=== PATIENT | female | born 1990 | race Caucasian/White ===

== ENCOUNTER 2019-07-21 15:32 | Outpatient (CLI) | payer OTHER ==
[2019-07-21 16:09] LABS: Appearance,Urine Cloudy (Clear); Bacteria,Urine Rare /hpf; Bilirubin,Urine Negative (Negative); Blood,Urine Negative (Negative); Color,Urine Yellow; Glucose,Urine (UA) Negative (Negative); Ketones,Urine Negative (Negative); Leukocyte Esterase,Urine Small (Negative); Mucus,Urine Few /hpf; Nitrite,Urine Negative (Negative); Protein,Urine 1+ (Negative); RBC,Urine 1 /hpf (0-5); Specific Gravity,Urine 1.026 (1.001-1.035); Squamous Epithelial Cell,Urine 10 /hpf (0-4); Urobilinogen,Urine <2.0 mg/dL (<2.0); WBC,Urine 8 /hpf (0-5)
[2019-07-21 16:35] LABS: Basophils % (A) 0 %; Eosinophils # (A) 0.1 k/uL (0-0.7); Eosinophils % (A) 0 %; HCT 34.5 % (34.0-46.0); HGB 11.9 gm/dL (11.4-16.0); Lymphocytes # (A) 1.5 k/uL (1.0-4.8); Lymphocytes % (A) 15 %; MCH 30.3 pg (25.0-35.0); MCHC 34.4 g/dL (31.0-37.0); MCV 88.1 fL (80.0-100.0); Mean Platelet Volume 7.8; Monocytes # (A) 0.4 k/uL (0-1.0); Monocytes % (A) 4 %; Neutrophils # (A) 8.2 k/uL (1.3-7.7); Neutrophils % (A) 79 %; Platelet Count 320 k/uL (150-450); RBC 3.92 m/uL (3.80-5.40); RDW 12.8 % (11.5-15.5); WBC 10.4 k/uL (3.8-10.6)
[2019-07-21 16:39] LABS: INR 0.9 (<1.2); Partial Thromboplastin Time 24.5 sec (22.0-30.0); Prothrombin Time 9.8 sec (9.0-12.0)
[2019-07-21 17:10] LABS: ALT 15 U/L (4-34); AST 26 U/L (14-36); African American GFR (CKD) >90 (>60 ml/min/1.73 sqM); Blood Urea Nitrogen 13 mg/dL (7-17); LDH 543 U/L (313-618); Non-African American GFR(CKD) >90 (>60 ml/min/1.73 sqM); Uric Acid 3.1 mg/dL (3.7-7.4)
[2019-07-21 17:26] VITALS: BP 144/78; PULSE 88; RESP 16; TEMP 97.2
--- NOTE | 2019-07-26 13:32 | P.MSEPDOC ---
Presenting Problems - Arrival Data Date of Arrival on Unit: 07/21/19 Time of Arrival on Unit: 15:32 Mode of Transport: Ambulatory - Complaint OB-Reason for Admission/Chief Complaint: Elevated Blood Pressure Medical History - Information : 1 Para: 0 Term: 0 : 0 Abortions: Spontaneous or Elective: 0 Number of Living Children: 0 - Gestational Age Gestational Age by JULIO CÉSAR (wks/days): 37 Weeks and 0 Days Review of Systems - Review of Systems Constitutional: No problems Breast: No problems ENT: No problems Cardiovascular: No problems Respiratory: No problems Gastrointestinal: No problems Genitourinary: No problems Musculoskeletal: No problems Neurological: No problems Skin: No problems Vital Signs - Temperature Temperature: 97.2 F Temperature Source: Temporal Artery Scan - Pulse Right Brachial Pulse Rate: 88 Pulse Assessment Method: Automatic Cuff - Respirations Respiratory Rate: 16 Oxygen Delivery Method: Room Air O2 Sat by Pulse Oximetry: 95 - Blood Pressure Right Arm Blood Pressure: 144/78 Blood Pressure Mean: 100 Blood Pressure Source: Automatic Cuff Medical Screen Scoring (Pre) - Cervical Exam Dilation: Exam Deferred Effacement: Exam Deferred Membranes: Intact - Uterine Contractions Frequency: N/A Duration: N/A Intensity: N/A - Maternal Vital Signs Maternal Temperature: N/A Maternal Blood Pressure: N/A Signs of Preeclampsia: N/A Maternal Respirations: N/A - Maternal Trauma Maternal Trauma: N/A - Assessment - Baby A Baseline FHR: 125 Heart Rate - NICHD Category: Category I (Normal) = 0 NST: Reactive Position: N/A Station: N/A - Total Score - Baby A Total Score - Baby A: 0 - Total Score - Baby B Total Score - Baby B: 0 - Total Score - Baby C Total Score - Baby C: 0 - Level of Risk - Baby A Level of Risk - Baby A: Low (0-5) - Level of Risk - Baby B Level of Risk - Baby B: Low (0-5) - Level of Risk - Baby C Level of Risk - Baby C: Low (0-5) Physician Notification (Pre) - Physician Notified Physician Notified Date: 07/21/19 Physician Notified Time: 17:10 New Order Received: Yes - Notification Comment Comment: Dr Mccullough in dept. Reviewed tracing, vitals, lab results. Orders to discharge. home, call office on am to be seen sometime for a BP recheck and NST. Return to tr with worsening sx Disposition - Disposition OB Disposition: Discharge to home Discharge Date: 07/21/19 Discharge Time: 17:20 I agree with the RN Medical Screening Exam: Yes Risk & Benefit of care provided described in d/c instruction: Yes Diagnosis: GESTATIONAL HTN W/O SIGNIFICANT PROTEINURIA, THIRD TRIMESTER
== END 2019-07-21 17:25 | disposition home or self-care (01) ==
LOC: FBPOP 15:32
PROVIDERS: ATTEND Obstetrics & Gynecology
DX: O13.3 Gestational [pregnancy-induced] hypertension without significant proteinuria, third trimester (principal); Z3A.37 37 weeks gestation of pregnancy
CPT/HCPCS: 59025; 82570; 84156; 82565; 83615; 84450; 84460; 84520; 84550; 85025; 85610; 85730; 81001; G0463; 99213

== ENCOUNTER 2019-08-11 13:16 | Inpatient (IN) | payer OTHER ==
[2019-08-13] MEDS ORDERED: OXYTOCIN 10 UNIT/ML 1 ML VIAL IM PRN (06:07)
[2019-08-13] MEDS ORDERED: LIDOCAINE 0.5% (PF) 5 MG/ML (50 ML SDV) SQ PRN (06:07)
[2019-08-13] MEDS ORDERED: CARBOPROST TROMETHAMINE 250 MCG/ML 1 ML AMP IM PRN (06:07)
[2019-08-13] MEDS ORDERED: TERBUTALINE 1 MG/ML VIAL SQ PRN (06:07)
[2019-08-13] MEDS ORDERED: METHYLERGONOVINE 0.2 MG/ML 1 ML AMP IM PRN (06:07)
[2019-08-13] MEDS ORDERED: OXYTOCIN 30 UNITS/500 ML NS 30 UNIT in SALINE 1 500ML.BAG IV SCH (06:15)
[2019-08-13 06:22] LABS: Basophils % (A) 0 %; Eosinophils # (A) 0.1 k/uL (0-0.7); Eosinophils % (A) 1 %; HCT 37.1 % (34.0-46.0); HGB 12.1 gm/dL (11.4-16.0); Lymphocytes # (A) 1.7 k/uL (1.0-4.8); Lymphocytes % (A) 16 %; MCH 29.1 pg (25.0-35.0); MCHC 32.7 g/dL (31.0-37.0); MCV 88.9 fL (80.0-100.0); Mean Platelet Volume 7.9; Monocytes # (A) 0.5 k/uL (0-1.0); Monocytes % (A) 5 %; Neutrophils # (A) 7.9 k/uL (1.3-7.7); Neutrophils % (A) 76 %; Platelet Count 289 k/uL (150-450); RBC 4.17 m/uL (3.80-5.40); RDW 13.5 % (11.5-15.5); WBC 10.4 k/uL (3.8-10.6)
[2019-08-13] MEDS: LACTATED RINGERS 1,000 ML IV SCH ×3 (06:27→13:48)
[2019-08-13] MEDS ORDERED: ROPIVACAINE 5MG/ML 20ML VIAL ONE (13:21)
[2019-08-13] MEDS ORDERED: SODIUM CHLORIDE 0.9% 100 ML BAG ONE (13:21)
[2019-08-13] MEDS ORDERED: fentaNYL (PF) 50 MCG/ML 5 ML AMP ONE (13:21)
[2019-08-13] MEDS ORDERED: ROPIVACAINE 100 MG, fentaNYL (PF) 200 MCG in SODIUM CHLORIDE 0.9% 76 ML EPIDURAL ONE (13:47)
[2019-08-13] MEDS ORDERED: diphenhydrAMINE 50 MG CAP PO PRN (18:00)
[2019-08-13] MEDS ORDERED: HYDROCORTISONE 2.5% RECTAL CREAM 30 GM TUBE RECTAL PRN (18:00)
[2019-08-13] MEDS ORDERED: SIMETHICONE 80 MG CHEWABLE PO PRN (18:00)
[2019-08-13] MEDS ORDERED: WITCH HAZEL 1 EACH MED..PAD TOPICAL PRN (18:00)
[2019-08-13] MEDS ORDERED: LANOLIN CREAM 5 GM TUBE TOPICAL PRN (18:00)
[2019-08-13] MEDS ORDERED: BENZOCAINE/MENTHOL SPRAY 1 GM/SPRAY AEROSOL TOPICAL PRN (18:00)
[2019-08-13] MEDS ORDERED: ACETAMINOPHEN TAB 325 MG TAB PO PRN (18:00)
[2019-08-13] MEDS ORDERED: diphenhydrAMINE 25 MG CAP PO PRN (18:00)
[2019-08-13] MEDS ORDERED: OXYTOCIN 20 UNITS/1000 ML NS 1,000 ML IV SCH (18:00)
[2019-08-13] MEDS ORDERED: diphenhydrAMINE 50 MG/ML 1 ML VIAL IVP PRN ×2 (18:00)
[2019-08-13] MEDS ORDERED: IBUPROFEN 600 MG TAB PO PRN (18:00)
[2019-08-13] MEDS ORDERED: ZOLPIDEM 5 MG TAB PO PRN (18:00)
--- NOTE | 2019-08-13 18:04 | P.HPOB ---
History of Present Illness H&P Date: 08/13/19 Chief Complaint: induction of labor 29-year-old presents at 40 weeks and 2 days for induction of labor. Her cervix is 3 cm dilated, 80% effaced, -2 station. She was miquel irregularly. heart tones 130 with moderate variability and reactive. Review of Systems All systems: negative Constitutional: Denies chills, Denies fever Eyes: denies blurred vision, denies pain Ears, nose, mouth and throat: Denies headache, Denies sore throat Cardiovascular: Denies chest pain, Denies shortness of breath Respiratory: Denies cough Gastrointestinal: Denies abdominal pain, Denies diarrhea, Denies nausea, Denies vomiting Genitourinary: Denies dysuria, Denies hematuria Musculoskeletal: Denies myalgias Integumentary: Denies pruritus, Denies rash Neurological: Denies numbness, Denies weakness Psychiatric: Denies anxiety, Denies depression Endocrine: Denies fatigue, Denies weight change Past Medical History Past Medical History: No Reported History Additional Past Medical History / Comment(s): Obstetric history: This is her first . She's had care with me since 16 weeks gestation. On the anatomy ultrasound did see 2 echogenic intracardiac foci and she went to maternal medicine for consultation. There was a normal anatomy ultrasound there and they did not see any echogenic intracardiac focus. She did have a normal 1 hour GTT. Blood type is B+, antibodies negative, rubella immune, RPR nonreactive, this B-, HIV nonreactive. GBS negative History of Any Multi-Drug Resistant Organisms: None Reported Past Surgical History: Hernia Repair Past Anesthesia/Blood Transfusion Reactions: No Reported Reaction Past Psychological History: No Psychological Hx Reported Smoking Status: Never smoker Past Alcohol Use History: None Reported, Rare Past Drug Use History: None Reported - Past Family History Mother Family Medical History: Hypertension Medications and Allergies Home Medications Medication Instructions Recorded Confirmed Type Pnv No.95/Ferrous Fum/Folic AC 1 tab PO ONCE 07/21/19 08/13/19 History [ Multivitamin Tablet] Allergies Allergy/AdvReac Type Severity Reaction Status Date / Time Sulfa (Sulfonamide Allergy Rash/Hives Verified 08/13/19 06:06 Antibiotics) Exam Osteopathic Statement: *. No significant issues noted on an osteopathic stru ctural exam other than those noted in the History and Physical/Consult. Vital Signs Temp Pulse Resp BP Pulse Ox 08/13/19 06:16 97.5 F L 95 16 135/82 99 Intake and Output 08/13/19 08/13/19 08/13/19 06:59 14:59 22:59 Other: # Voids 1 Weight 97.522 kg Heart: Regular rate and rhythm Lungs: Clear to auscultation bilaterally Abdomen: Soft, nontender Extremities: Negative Homans sign Results Result Diagrams: 08/13/19 06:05 Abnormal Lab Results - Last 24 Hours (Table) 08/13/19 Range/Units 06:05 Neutrophils # 7.9 H (1.3-7.7) k/uL Assessment and Plan (1) Normal labor Current Visit: Yes Status: Acute Code(s): O80 - ENCOUNTER FOR FULL-TERM UNCOMPLICATED DELIVERY; Z37.9 - OUTCOME OF DELIVERY, UNSPECIFIED SNOMED Code(s): 09485469 Plan: 1. Amniotomy and Pitocin for induction of labor. 2. Anticipate normal vaginal delivery
--- NOTE | 2019-08-13 18:05 | P.PROBDLV ---
Vaginal Delivery Note - . Vaginal Delivery Note: 29-year-old presents at 40 weeks and 2 days for induction of labor. Her cervix is 3 cm dilated, 80% effaced, -2 station. She was miquel irregularly. heart tones 130 with moderate variability and reactive. Pitocin was started. Amniotomy was performed at 8:06 AM and clear fluid noted. When she was uncomfortable she did get an epidural. Her cervix was completely dilated at 1639. She pushed, delivered a viable male infant over intact perineum under epidural anesthesia at 1738. Head delivered OA, and anterior shoulder delivered gentle downward guidance followed by posterior shoulder and rest of body. Nose and mouth bulb suctioned, cord clamped cut, placed mother's abdomen. Apgars 9, 9, weight 8 lbs. 13 oz. Placenta delivered spontaneously, intact with three-vessel cord at 1740. Vagina, cervix, and perineum were inspected. First degree midline laceration was repaired with 3-0 Vicryl. Estimated blood loss 100 mL. Mother and baby in stable condition.
[2019-08-13] MEDS: SENNOSIDES-DOCUSATE SODIUM 1 EACH TAB PO SCH (19:34)
[2019-08-14 06:55] LABS: Basophils % (A) 0 %; Eosinophils # (A) 0.1 k/uL (0-0.7); Eosinophils % (A) 1 %; HCT 33.1 % (34.0-46.0); HGB 11.2 gm/dL (11.4-16.0); Lymphocytes % (A) 14 %; MCH 30.1 pg (25.0-35.0); MCHC 33.9 g/dL (31.0-37.0); MCV 88.7 fL (80.0-100.0); Monocytes # (A) 0.8 k/uL (0-1.0); Monocytes % (A) 5 %; Neutrophils # (A) 11.6 k/uL (1.3-7.7); Neutrophils % (A) 79 %; Platelet Count 279 k/uL (150-450); RBC 3.73 m/uL (3.80-5.40); RDW 13.5 % (11.5-15.5); WBC 14.7 k/uL (3.8-10.6)
[2019-08-14] MEDS: SENNOSIDES-DOCUSATE SODIUM 1 EACH TAB PO SCH (08:00)
[2019-08-14 09:58] VITALS: RESP 18
--- NOTE | 2019-08-14 11:28 | P.DS ---
Providers Date of admission: 08/13/19 05:53 Expected date of discharge: 08/14/19 Attending physician: Andra Casey Primary care physician: Stated None - Discharge Diagnosis(es) (1) Normal labor Current Visit: Yes Status: Resolved (2) Normal vaginal delivery Current Visit: Yes Status: Acute Hospital Course: Patient presented for induction of labor. She underwent normal vaginal delivery. Her course was uncomplicated. She will be discharged home day #1 in stable condition to follow-up with me in 6 weeks. Plan - Discharge Summary New Discharge Prescriptions: New Ibuprofen [Motrin] 600 mg PO Q6HR PRN #30 tab PRN Reason: Mild Pain Or Fever >= 100.5 No Action Pnv No.95/Ferrous Fum/Folic AC [ Multivitamin Tablet] 1 tab PO ONCE Discharge Medication List Pnv No.95/Ferrous Fum/Folic AC [ Multivitamin Tablet] 1 tab PO ONCE 07/21/19 [History] Ibuprofen [Motrin] 600 mg PO Q6HR PRN #30 tab 08/14/19 [Rx] Follow up Appointment(s)/Referral(s): Andra Casey DO [Doctor of Osteopathic Medicine] - 6 Weeks Discharge Disposition: HOME SELF-CARE
[2019-08-14 16:53] VITALS: BP 134/80; PULSE 77; TEMP 97.9
== END 2019-08-14 19:29 | disposition home or self-care (01) | DRG 807 ==
LOC: 4FBP 08-13 05:53
PROVIDERS: ADMIT Obstetrics & Gynecology; ATTEND Obstetrics & Gynecology
PROC: 10E0XZZ Delivery of Products of Conception, External Approach (ICD-10-PCS; principal; 2019-08-13)
PROC: 0HQ9XZZ Repair Perineum Skin, External Approach (ICD-10-PCS; 2019-08-13)
PROC: 00HU33Z Insertion of Infusion Device into Spinal Canal, Percutaneous Approach (ICD-10-PCS; 2019-08-13)
PROC: 3E0R3BZ Introduction of Anesthetic Agent into Spinal Canal, Percutaneous Approach (ICD-10-PCS; 2019-08-13)
PROC: 10907ZC Drainage of Amniotic Fluid, Therapeutic from Products of Conception, Via Natural or Artificial Opening (ICD-10-PCS; 2019-08-13)
DX: O70.0 First degree perineal laceration during delivery (principal); Z37.0 Single live birth; Z3A.40 40 weeks gestation of pregnancy; Z88.2 Allergy status to sulfonamides; Z82.49 Family history of ischemic heart disease and other diseases of the circulatory system
CPT/HCPCS: 85025; 86850; 86900; 86901

== ENCOUNTER → 2022-02-09 | Outpatient (CLI) | payer OTHER ==
--- NOTE | 2022-02-09 16:22 | US ---
EXAMINATION TYPE: Transabdominal DATE OF EXAM: 02/09/2022 4:00 PM COMPARISON: NONE CLINICAL HISTORY: Z36.89 CONFIRM GESTATIONAL DATES AND AGE VIABILITY. Positive beta hCG test. EXAM PERFORMED: Transabdominal (TA) EXAM MEASUREMENTS: GESTATIONAL AGE / DATING Physician Established: (11 weeks/0 days) EDC: 08/31/2022 Dates by LMP: LMP unknown Dates by First Scan: No previous this is first scan Dates by Current Scan for: (11 weeks/0 days) EDC: 08/31/2022 MATERNAL ANATOMY Uterus: 9.8 x 6.8 x 7.9cm Right Ovary: 3.9 x 2.9 x 1.9cm Left Ovary: 3.5 x 2.0 x 2.2cm Post CDS / Adnexa: wnl Presence of free fluid: wnl Presence of corpus luteal cyst: not seen Presence of subchorionic bleed: no GESTATION / SURVEY CRL: 4.2cm (11 weeks/0 days) Yolk Sac (normal less than 6mm): not seen Heart Rate: 166 bpm Rhythm: Normal IUP: Viable IUP Single live intrauterine gestation as gestational sac and pole are present. Yolk sac not clearl y seen. No free fluid. Both ovaries are present. No suspicious extraovarian adnexal lesions. IMPRESSION: Single live intrauterine gestation is confirmed. Mean crown-rump length 4.2 cm correspond ing to 11 weeks 0 day old fetus.
== END | disposition home or self-care (01) ==
LOC: RADUSWWP 15:25
PROVIDERS: ATTEND Obstetrics & Gynecology
DX: Z36.89 Encounter for other specified antenatal screening (principal)
CPT/HCPCS: 76801

== ENCOUNTER 2022-08-30 05:55 | Inpatient (IN) | payer OTHER ==
[2022-08-30] MEDS ORDERED: LIDOCAINE 0.5% (PF) 5 MG/ML (50 ML SDV) SQ PRN (06:09)
[2022-08-30] MEDS ORDERED: TERBUTALINE 1 MG/ML VIAL SQ PRN (06:09)
[2022-08-30] MEDS: LACTATED RINGERS 1,000 ML IV SCH ×3 (06:11→14:49)
[2022-08-30] MEDS ORDERED: OXYTOCIN 30 UNITS/500 ML NS 30 UNIT in SALINE 1 500ML.BAG IV SCH (06:15)
[2022-08-30 06:22] LABS: Basophils % (A) 0 %; Eosinophils # (A) 0.1 k/uL (0-0.7); Eosinophils % (A) 1 %; HCT 34.8 % (34.0-46.0); HGB 11.8 gm/dL (11.4-16.0); Lymphocytes # (A) 1.8 k/uL (1.0-4.8); Lymphocytes % (A) 20 %; MCH 28.7 pg (25.0-35.0); MCV 84.2 fL (80.0-100.0); Mean Platelet Volume 7.8; Monocytes # (A) 0.4 k/uL (0-1.0); Monocytes % (A) 4 %; Neutrophils # (A) 6.4 k/uL (1.3-7.7); Neutrophils % (A) 73 %; Platelet Count 307 k/uL (150-450); RBC 4.13 m/uL (3.80-5.40); RDW 13.7 % (11.5-15.5); WBC 8.8 k/uL (3.8-10.6)
--- NOTE | 2022-08-30 08:19 | P.HPOB ---
History of Present Illness H&P Date: 08/30/22 Chief Complaint: induction of labor 32 year old presents at 39 weeks 6 days for induction of labor. Her cervix is 2-3 cm dilated, 70% effaced, -2 station. She is miquel irregularly. heart tones are 135 with moderate variability and reactive. Review of Systems All systems: negative Constitutional: Denies chills, Denies fever Eyes: denies blurred vision, denies pain Ears, nose, mouth and throat: Denies headache, Denies sore throat Cardiovascular: Denies chest pain, Denies shortness of breath Respiratory: Denies cough Gastrointestinal: Denies abdominal pain, Denies diarrhea, Denies nausea, Denies vomiting Genitourinary: Denies dysuria, Denies hematuria Musculoskeletal: Denies myalgias Integumentary: Denies pruritus, Denies rash Neurological: Denies numbness, Denies weakness Psychiatric: Denies anxiety, Denies depression Endocrine: Denies fatigue, Denies weight change Past Medical History Past Medical History: No Reported History Additional Past Medical History / Comment(s): Obstetric history: First was a normal vaginal delivery. This is her second . She did have a normal 1 hour GTT. Blood type is B+, antibodies negative, rubella immune, RPR nonreactive, this B-, HIV nonreactive. GBS negative History of Any Multi-Drug Resistant Organisms: None Reported Past Surgical History: Hernia Repair Past Anesthesia/Blood Transfusion Reactions: No Reported Reaction Past Psychological History: No Psychological Hx Reported Smoking Status: Never smoker Past Alcohol Use History: None Reported, Rare Past Drug Use History: None Reported - Past Family History Mother Family Medical History: Hypertension Medications and Allergies Home Medications Medication Instructions Recorded Confirmed Type Pnv No.95/Ferrous Fum/Folic AC 1 tab PO ONCE 07/21/19 08/13/19 History [ Multivitamin Tablet] Allergies Allergy/AdvReac Type Severity Reaction Status Date / Time Sulfa (Sulfonamide Allergy Rash/Hives Verified 08/30/22 06:08 Antibiotics) Exam Osteopathic Statement: *. No significant issues noted on an osteopathic structural exam other than those noted in the History and Physical/Consult. Vital Signs Temp Pulse Resp BP Pulse Ox 08/30/22 06:06 97.2 F L 101 H 17 131/81 98 Intake and Output 08/29/22 08/30/22 08/30/22 22:59 06:59 14:59 Other: Weight 91.172 kg Heart: Regular rate and rhythm Lungs: Clear to auscultation bilaterally Abdomen: Soft, nontender Extremities: Negative Homans sign Results Result Diagrams: 08/30/22 06:15 Assessment and Plan (1) Encounter for induction of labor Current Visit: Yes Status: Acute Code(s): Z34.90 - ENCNTR FOR SUPRVSN OF NORMAL , UNSP, UNSP TRIMESTER SNOMED Code(s): 522708620 Plan: 1. Induction of labor with amniotomy and Pitocin 2. Anticipate normal vaginal delivery
[2022-08-30] MEDS ORDERED: SODIUM CHLORIDE 0.9% 100 ML BAG ONE (12:42)
[2022-08-30] MEDS ORDERED: BUPIVACAINE (PF) 0.25% 30 ML VIAL ONE (12:42)
[2022-08-30] MEDS ORDERED: fentaNYL (PF) 50 MCG/ML 5 ML AMP ONE (12:42)
[2022-08-30] MEDS ORDERED: diphenhydrAMINE 50 MG CAP PO PRN (15:26)
[2022-08-30] MEDS ORDERED: ZOLPIDEM 5 MG TAB PO PRN (15:26)
[2022-08-30] MEDS ORDERED: diphenhydrAMINE 25 MG CAP PO PRN (15:26)
[2022-08-30] MEDS ORDERED: SIMETHICONE 80 MG CHEWABLE PO PRN (15:26)
[2022-08-30] MEDS ORDERED: LANOLIN CREAM 5 GM TUBE TOPICAL PRN (15:26)
[2022-08-30] MEDS ORDERED: diphenhydrAMINE 50 MG/ML 1 ML VIAL IVP PRN ×2 (15:26)
[2022-08-30] MEDS ORDERED: HYDROCORTISONE 2.5% RECTAL CREAM 30 GM TUBE RECTAL PRN (15:26)
[2022-08-30] MEDS ORDERED: IBUPROFEN 600 MG TAB PO PRN (15:26)
[2022-08-30] MEDS ORDERED: BENZOCAINE/MENTHOL SPRAY 1 GM/SPRAY AEROSOL TOPICAL PRN (15:26)
[2022-08-30] MEDS ORDERED: ACETAMINOPHEN TAB 325 MG TAB PO PRN (15:26)
[2022-08-30] MEDS ORDERED: SENNOSIDES-DOCUSATE SODIUM 1 EACH TAB PO SCH (20:00)
[2022-08-31 08:06] LABS: Basophils % (A) 0 %; Eosinophils % (A) 0 %; HCT 30.9 % (34.0-46.0); HGB 10.4 gm/dL (11.4-16.0); Lymphocytes # (A) 2.1 k/uL (1.0-4.8); Lymphocytes % (A) 22 %; MCH 28.9 pg (25.0-35.0); MCHC 33.7 g/dL (31.0-37.0); MCV 85.9 fL (80.0-100.0); Monocytes # (A) 0.6 k/uL (0-1.0); Monocytes % (A) 6 %; Neutrophils # (A) 6.3 k/uL (1.3-7.7); Neutrophils % (A) 69 %; Platelet Count 261 k/uL (150-450); RDW 13.4 % (11.5-15.5); WBC 9.2 k/uL (3.8-10.6)
[2022-08-31 08:48] VITALS: RESP 20
--- NOTE | 2022-08-31 09:08 | P.PROBDLV ---
Vaginal Delivery Note - . Vaginal Delivery Note: 32 year old presents at 39 weeks 6 days for induction of labor. Her cervix is 2-3 cm dilated, 70% effaced, -2 station. She is miquel irregularly. heart tones are 135 with moderate variability and reactive. Pitocin was started and amniotomy performed at 8:01 AM, clear fluid noted. When she was uncomfortable she did get an epidural. Her cervix was completely dilated at 1455. She pushed, a viable female over intact perineum under epidural anesthesia at 1515. Head delivered OA, nuchal cord 2 easily reduced, anterior shoulder delivered gentle downward guidance followed by posterior shoulder and rest of body. Nose and mouth bulb suctioned, cord clamped and cut, infant placed on mother's abdomen. Apgars 8, 9, weight 6 pounds 15.6 ounces. Placenta delivered spontaneously, intact with three-vessel cord at 1517. Vagina, cervix, perineum inspected. First-degree midline laceration was repaired with 3-0 Vicryl. Estimated blood loss 75 mL. Mother and baby in stable condition.
--- NOTE | 2022-08-31 09:09 | P.DS ---
Providers Date of admission: 08/30/22 05:55 Expected date of discharge: 08/31/22 Attending physician: Andra Casey Primary care physician: Stated None - Discharge Diagnosis(es) (1) Encounter for induction of labor Current Visit: Yes Status: Resolved (2) Normal vaginal delivery Current Visit: No Status: Acute Hospital Course: Patient presented for induction of labor. She underwent a normal vaginal delivery. Post course has been uncomplicated. She denies nausea, vomiting, chest pain, shortness of breath or calf pain. Her lochia is minimal and her cramping is tolerable. Patient will be discharged home post day #1 in stable condition to follow-up with me in 6 weeks. Plan - Discharge Summary New Discharge Prescriptions: New RX: Ibuprofen [Motrin] 600 mg PO Q6HR PRN #30 tab PRN Reason: Mild Pain (Scale 1 To 3) No Action Pnv No.95/Ferrous Fum/Folic AC [ Multivitamin Tablet] 1 tab PO ONCE Discharge Medication List Pnv No.95/Ferrous Fum/Folic AC [ Multivitamin Tablet] 1 tab PO ONCE 07/21/19 [History] RX: Ibuprofen [Motrin] 600 mg PO Q6HR PRN #30 tab 08/31/22 [Rx] Follow up Appointment(s)/Referral(s): Andra Casey DO [Doctor of Osteopathic Medicine] - 10/11/22 11:15 am Discharge Disposition: HOME SELF-CARE
[2022-08-31 12:12] VITALS: BP 126/84; PULSE 70; TEMP 98
== END 2022-08-31 15:40 | disposition home or self-care (01) | DRG 807 ==
LOC: 4FBP 05:55
PROVIDERS: ADMIT Obstetrics & Gynecology; ATTEND Obstetrics & Gynecology
PROC: 10E0XZZ Delivery of Products of Conception, External Approach (ICD-10-PCS; principal; 2022-08-30)
PROC: 0HQ9XZZ Repair Perineum Skin, External Approach (ICD-10-PCS; 2022-08-30)
PROC: 4A0HXCZ Measurement of Products of Conception, Cardiac Rate, External Approach (ICD-10-PCS; 2022-08-30)
PROC: 10907ZC Drainage of Amniotic Fluid, Therapeutic from Products of Conception, Via Natural or Artificial Opening (ICD-10-PCS; 2022-08-30)
PROC: 3E033VJ Introduction of Other Hormone into Peripheral Vein, Percutaneous Approach (ICD-10-PCS; 2022-08-30)
DX: O69.81X0 Labor and delivery complicated by cord around neck, without compression, not applicable or unspecified (principal); Z37.0 Single live birth; O70.0 First degree perineal laceration during delivery; Z3A.39 39 weeks gestation of pregnancy; Z88.2 Allergy status to sulfonamides; Z87.19 Personal history of other diseases of the digestive system
CPT/HCPCS: 85025; 86850; 86900; 86901